=== PATIENT | male | born 1960 | race Caucasian/White ===

== ENCOUNTER 2022-01-06 16:41 | Emergency (ER) | payer BC ==
[~2022-01-06] VITALS: Ht 182.9 cm; Wt 102.1 kg
--- NOTE | 2022-01-06 16:47 | NUR ---
MD KOTHARI AT BEDSIDE FOR ASSESS.
[2022-01-06 16:51] VITALS: BP_SYST 152
[2022-01-06] MEDS ORDERED: METOCLOPRAMIDE HCL 10 MG/2 ML VIAL IVP ONE (17:00)
[2022-01-06] MEDS ORDERED: MECLIZINE HCL 25 MG TABLET (ANITVERT) PO ONE (17:00)
[2022-01-06 18:04] LABS: BASOPHILS % (AUTO) 0.3 % (0.0-2.0); EOSINOPHILS # (AUTO) 0.1 K/uL (0.0-0.4); EOSINOPHILS % (AUTO) 1.2 % (0.0-4.0); HEMATOCRIT 37.8 % (36-54); HEMOGLOBIN 12.9 g/dL (14.0-18.0); LYMPHOCYTES # (AUTO) 1.2 K/uL (1.0-5.5); LYMPHOCYTES % (AUTO) 10.5 % (20.5-51.5); MEAN CORPUSCULAR HEMOGLOBIN 32 pg (27-31); MEAN CORPUSCULAR HGB CONC 34 % (32-36); MEAN CORPUSCULAR VOLUME 93 fL (79.0-98.0); MONOCYTES # (AUTO) 0.8 K/uL (0.0-1.0); MONOCYTES % (AUTO) 6.7 % (1.7-9.3); NEUTROPHILS # (AUTO) 9.6 K/uL (1.8-7.7); NEUTROPHILS % (AUTO) 81.3 % (40.0-70.0); PLATELET COUNT (AUTO) 268 K/uL (130-430); RED BLOOD CELL COUNT(AUTO) 4.06 MIL/uL (4.2-6.2); RED CELL DISTRIBUTION WIDTH 13.6 % (9.0-15.0); WHITE BLOOD COUNT (AUTO) 11.8 K/uL (4.8-10.8)
[2022-01-06 18:16] LABS: ANION GAP 7 (5-15); CHLORIDE 109 mmol/L (98-107); CREATININE 1.06 mg/dL (0.55-1.30); GLUCOSE 106 mg/dL (70-99); POTASSIUM 4.1 mmol/L (3.5-5.1); SODIUM SERUM 142 mmol/L (136-145); UREA NITROGEN, BLOOD 19 mg/dL (8-21)
[2022-01-06 18:17] LABS: GFR AFRICAN AMERICAN 91 mL/min (>90)
[2022-01-06 18:20] LABS: ALANINE AMINOTRANSFERASE 15 U/L (12-78); ALBUMIN 3.2 g/dL (3.4-4.8); ASPARTATE AMINOTRANSFERASE 14 U/L (10-37); TOTAL BILIRUBIN 0.1 mg/dL (0.0-1.0)
--- NOTE | 2022-01-06 19:23 | NUR ---
ASSUME CARE OF THIS PT AAOX4, NO SOB AND NOT IN ANY DISTRESS ATB THIS TIME, PT STATED HERE FOR DIZZINESS. PT MEDIVCATED FOR EMAR. PT STATD THAT HE FEELS MUCH BETTER AT THIS TIME. PENDING MD SHANNON ANDERSON.
[2022-01-06] MEDS ORDERED: MECL-261 PO (19:35)
--- NOTE | 2022-01-06 19:45 | NUR ---
DR. KOTHARI AT BEDSIDE FOR RE EVAL.
--- NOTE | 2022-01-06 20:05 | NUR ---
DC PT HOME AAOX4, NON SOB NOTED AND NOT IN ANY DISTRESS. DC INSTRUCTION WERE GIVEN TO PATIENT ALSO INSYTUCTED NANCY MAKE F/U WITH HIS PCP. HE VERBALIZED UNDERSTYANDING. PT ASSISTED VIA WHEELCHAIR DURING DC.
[2022-01-06 20:12] VITALS: BP_SYST 123
== END 2022-01-06 20:12 | disposition home or self-care (01) ==
LOC: SED 16:41
DX: R42 Dizziness and giddiness (principal); R11.2 Nausea with vomiting, unspecified; Z79.899 Other long term (current) drug therapy
CPT/HCPCS: 99285; 96374; 70450; 71045; 80053; 82550; 85025; 84484; 36415; 93005; 76376; J8597; J2765